=== PATIENT | male | born 1965 | race Caucasian/White ===

== ENCOUNTER 2023-01-10 20:44 | Emergency (ER) | payer OTHER, SELFPAY ==
[~2023-01-10 20:44] MED LIST: Iopamidol 370 76% 100 ML VIAL ONE
[2023-01-10 21:42] LABS: #Eosinphils 0.1 thou/uL (0.0-0.7); #Monocytes 0.8 thou/uL (0.11-0.59); #Neutrophils 3.6 thou/uL (1.40-6.50); %Basophils 0.6 % (0.0-1.0); %Eosinophils 1.4 % (0.0-10.0); %Lymphocytes 36.6 % (21.0-51.0); %Monocytes 11.5 % (0.0-10.0); %Neutrophils 49.6 % (42.0-75.0); Hemoglobin 15.6 g/dL (14.0-18.0); Mean Corpuscular HGB CONC 34.1 g/dL (32.0-36.0); Mean Corpuscular Hemoglobin 29.6 pg (27.0-31.0); Mean Corpuscular Volume 86.7 fl (78.0-98.0); Mean Platelet Volume 9.4 fL (7.4-10.4); Platelet Count 231 10x3/uL (130-400); RBC Distribution Width 12.3 % (11.5-14.5); Red Blood Cell (RBC) Count 5.27 mill/uL (4.70-6.10); White Blood Cell (WBC) Count 7.2 10x3/uL (4.8-10.8)
[2023-01-10 22:11] LABS: ALT (SGPT) 14 U/L (8-55); AST (SGOT) 17 U/L (5-34); Albumin 4.4 g/dL (3.5-5.0); Alkaline Phosphatase 104 U/L (40-110); Anion Gap 16 mmol/L (10-20); BUN (Urea Nitrogen) 19 mg/dL (8.4-25.7); Bilirubin, Total 0.4 mg/dL (0.2-1.2); Calc. Creatinine Clearance 0 mL/min (70-130); Calcium 9.6 mg/dL (7.8-10.44); Carbon Dioxide 22 mmol/L (22-29); Chloride 103 mmol/L (98-107); Estimated GFR 57; Globulin 3.1 g/dL (2.4-3.5); Glucose 119 mg/dL (70-105); Lipase 20 U/L (8-78); Potassium 3.6 mmol/L (3.5-5.1); Protein, Total 7.5 g/dL (6.0-8.3); Sodium 137 mmol/L (136-145)
[2023-01-10] MEDS ORDERED: Ondansetron PF 4 MG/2 ML Vial ONE (22:30)
[2023-01-10] MEDS ORDERED: Morphine 4 MG/ML VIAL ONE (22:30)
[2023-01-11 00:50] LABS: Bilirubin Negative (Negative); Blood, Urine Negative (Negative); Clarity Clear (Clear); Glucose, Urine (Dipstick) Normal (Negative); Ketone, Urine Negative (Negative); Leukocyte Negative Leu/uL (Negative); Nitrite Negative (Negative); Protein, Urine (Dipstick) Negative (Neg-Trace); Specific Gravity, Urine 1.029 (1.002-1.036); Urobilinogen Normal mg/dL (Less than 2)
[2023-01-11] MEDS ORDERED: Ondansetron PF 4 MG/2 ML Vial ONE (01:29)
[2023-01-11] MEDS ORDERED: Morphine 4 MG/ML VIAL ONE (01:29)
== END 2023-01-11 01:40 ==
LOC: ERS 20:44
DX: R10.13 Epigastric pain (principal); I10 Essential (primary) hypertension; E03.9 Hypothyroidism, unspecified; E78.5 Hyperlipidemia, unspecified; Z79.899 Other long term (current) drug therapy
CPT/HCPCS: 36415; 74177; 80053; 81003; 83690; 84484; 85025; 93005; 96374; 96375; 96376; J2270; J2405; Q9967